=== PATIENT | female | born 1965 | race Caucasian/White ===

== ENCOUNTER 2023-11-09 13:01 | Outpatient (CLI) | payer MEDICAID ==
--- NOTE | 2023-11-12 12:27 | Mammography Report ---
BILATERAL DIGITAL SCREENING MAMMOGRAM 3D/2D WITH EXAGGERATED CC: 11/09/2023 CLINICAL: Routine screening. Family history of breast cancer. Comparison is made to exams dated: 07/28/2022 mammogram, 05/05/2021 mammogram, 03/23/2019 mammogram, and 08/01/2016 [facility]ogram - [facility]. There are scattered areas of fibroglandular density in both breasts (category b / 25%-50% glandular t issue). There is a focal asymmetry in the right breast upper outer quadrant at anterior depth. No other significant masses, calcifications, or other findings are seen in either breast. IMPRESSION: INCOMPLETE: NEEDS ADDITIONAL IMAGING EVALUATION The focal asymmetry in the right breast is indeterminate. Needs additional imaging evaluation. Recom mend right breast diagnostic mammogram and ultrasound. Based on the Tyrer Cuzick model (a risk assessment model) the patients lifetime risk is 7.3% and her 10 year risk is 2.7%. According to the ACR, ACS, and NCCN guidelines, an annual breast MRI exam swapnil g with mammogram is recommended if the patients lifetime risk is 20% or greater. This exam was interpreted at Station ID: [id number]. NOTE: For mammograms, a report in lay terms will be sent to the patient. Approximately 15% of breast malignancies will not be visualized mammographically. In the management of a palpable breast mass, a negative mammogram must not discourage biopsy of a clinically suspicious lesion. Electronically Signed By: Bell Pedro M.D., PH.D eb/:11/11/2023 23:16:21 ACR BI-RADS Category 0: Incomplete 3340F PARENCHYMAL PATTERN: (A) - The breast(s) demonstrate(s) scattered fibroglandular densities. BI-RADS CATEGORY: (0) - 0 Mammo and [place] [id number] Immediate follow-up LATERALITY: (B)
== END 2023-11-09 13:02 | disposition home or self-care (01) ==
LOC: DI.S 13:01
PROVIDERS: ATTEND Physician Assistant Medical
DX: Z12.31 Encounter for screening mammogram for malignant neoplasm of breast (principal); Z80.3 Family history of malignant neoplasm of breast; R92.323 Mammographic fibroglandular density, bilateral breasts; R92.8 Other abnormal and inconclusive findings on diagnostic imaging of breast

== ENCOUNTER 2023-12-02 12:33 | Outpatient (CLI) | payer MEDICAID ==
--- NOTE | 2023-12-03 12:48 | Ultrasound Report ---
LIMITED ULTRASOUND OF RIGHT BREAST: 12/02/2023 CLINICAL: Patient returns today to evaluate a focal asymmetry in the right breast. Comparison is made to exams dated: 12/02/2023 mammogram, 11/09/2023 mammogram - [facility], 07/28/2022 mammogram, 05/05/2021 mammogram, and 03/23/2019 mammogram - [facility]. Color flow ultrasound of the right breast 9 o'clock region was performed. Cardona scale images of the r eal-time examination were reviewed. There is a 0.6 cm x 0.8 cm x 0.5 cm oval cyst with a smooth internal wall in the right breast at 9 o' clock anterior depth 3 cm from the nipple. This oval cyst is hypoechoic with posterior acoustic enha ncement. This correlates with mammography findings. Color flow imaging demonstrates that there is n o vascularity present. IMPRESSION: PROBABLY BENIGN The 0.6 cm x 0.8 cm x 0.5 cm oval cyst in the right breast is consistent with a complicated cyst and is probably benign. A follow-up right ultrasound in 6 months is recommended to demonstrate stability. This exam was interpreted at Station ID: [id number]. Electronically Signed By: Cy ca/dean:12/02/2023 13:25:37 Ultrasound BI-RADS: 3 Probably benign BI-RADS CATEGORY: (3) - 3 Ultrasound [id number] 6 month follow-up LATERALITY: (R)
--- NOTE | 2023-12-03 12:48 | Mammography Report ---
UNILATERAL RIGHT DIGITAL DIAGNOSTIC MAMMOGRAM 3D/2D: 12/02/2023 CLINICAL: Routine screening. Comparison is made to exams dated: [facility] 07/[facility], 05/05/2021 mammogram, and 03/23/2019 mammogram - [facility]. The right breast is heterogeneously dense, which may obscure small masses (category c / 51-75% glandu lar tissue). There is an oval focal asymmetry with a circumscribed margin in the right breast at 9 o'clock anterio r depth. This is seen in additional views. No other significant masses or calcifications are seen in the breast. IMPRESSION: INCOMPLETE: NEEDS ADDITIONAL IMAGING EVALUATION The oval focal asymmetry in the right breast is indeterminate. An ultrasound is recommended. Based on the Tyrer Cuzick model (a risk assessment model) the patients lifetime risk is 10.6% and he r 10 year risk is 4.1%. According to the ACR, ACS, and NCCN guidelines, an annual breast MRI exam nerissa ng with mammogram is recommended if the patients lifetime risk is 20% or greater. This exam was interpreted at Station ID: [id number]. NOTE: For mammograms, a report in lay terms will be sent to the patient. Approximately 15% of breast malignancies will not be visualized mammographically. In the management of a palpable breast mass, a negative mammogram must not discourage biopsy of a clinically suspicious lesion. Electronically Signed By: Cy ca/dean:12/02/2023 13:22:04 ACR BI-RADS Category 0: Incomplete 3340F PARENCHYMAL PATTERN: (D) - The breast(s) demonstrate(s) heterogeneously dense fibroglandular kira mcnally. BI-RADS CATEGORY: (0) - 0 Ultrasound [id number] Immediate follow-up LATERALITY: (R)
== END 2023-12-02 12:34 | disposition home or self-care (01) ==
LOC: DI 12:33
PROVIDERS: ATTEND Physician Assistant Medical
DX: N60.01 Solitary cyst of right breast (principal); R92.333 Mammographic heterogeneous density, bilateral breasts

== ENCOUNTER 2023-12-21 10:25 | Day surgery (SDC) | payer MEDICAID ==
[2023-12-21] MEDS ORDERED: LACTATED RINGERS 1,000 ML IV ONE ×2 (10:34→12:33)
[2023-12-21] MEDS ORDERED: ONDANSETRON 4 MG/2 ML VIAL ONE (10:55)
[2023-12-21] MEDS ORDERED: ONDANSETRON 4 MG/2 ML VIAL IVP ONE (11:03)
[2023-12-21] MEDS ORDERED: PROPOFOL 500 MG/50 ML 500 MG/50 ML VIAL ONE (11:54)
[2023-12-21] MEDS ORDERED: MIDAZOLAM 2 MG/2 ML VIAL ONE (11:54)
--- NOTE | 2023-12-21 11:58 | ANESTHESIA ---
Pre-Anesthesia VS, & Labs - Diagnosis screening - Procedure colonoscopy Vital Signs: Temp Pulse Resp BP Pulse Ox O2 Flow Rate 36.4 C L 83 12 149/85 H 96 12/21/23 10:40 12/21/23 10:40 12/21/23 10:40 12/21/23 10:40 12/21/23 10:40 Height: 5 ft 6 in Weight (kg): 81 kg Body Mass Index: 28.8 BMI Classification: Overweight - NPO >8 hours - Is Patient ?: No Home Medications and Allergies Home Medications: Ambulatory Orders Albuterol Sulfate [Proventil Hfa] 1 puffs IH ONCE 12/20/23 Atorvastatin [Lipitor] 20 mg PO DAILY 12/20/23 FLUoxetine [PROzac] 40 mg PO DAILY 12/20/23 Albuterol Sulfate [Proventil Hfa] 1 puffs IH ONCE 12/20/23 Atorvastatin [Lipitor] 20 mg PO DAILY 12/20/23 FLUoxetine [PROzac] 40 mg PO DAILY 12/20/23 Allergies/Adverse Reactions: Allergies Allergy/AdvReac Type Severity Reaction Status Date / Time Penicillins AdvReac Hives Verified 12/20/23 13:33 Anes History & Medical History - Anesthetic History Anesthesia Complications: reports: No previous complications Family history of Anesthesia Complications: Denies Family history of Malignant Hyperthermia: Denies - Medical History Cardiovascular: reports: High cholesterol Pulmonary: reports: Asthma (exercise induced) Gastrointestinal: reports: Other Urinary: reports: None Musculoskeletal: reports: None Endocrine/Autoimmune: reports: None Skin: reports: None Smoking Status: Never smoker Psychosocial: reports: No issues indicated History of Cancer?: No - Surgical History General: reports: EGD Eyes Ears Nose Throat (EENT): reports: Tonsil/Adenoidectomy Gynecologic: reports: Tubal ligation Exam General: Alert, Oriented x3, Cooperative Dental: WNL Mouth Openin Fingerbreadth Neck Mobility: Normal Mallampati classification: II Thyromental Distance: 4-6 cm Respiratory: Lungs clear Cardiovascular: Regular rate Plan Anesthesia Type: General, Total IV Consent for Procedure(s) Verified and Reviewed: Yes Code Status: Attempt Resuscitation ASA classification: 2-Mild systemic disease Is this case an emergency?: No
[2023-12-21 13:08] VITALS: BP 129/71; O2SAT 98
--- NOTE | 2023-12-21 13:13 | ANESTHESIA POST OP EVALUATION ---
Anesthesia Post Eval - Post Anesthesia Eval Vitals: Last Vital Signs Temp 36.2 C L 12/21/23 12:42 Pulse 79 12/21/23 12:42 Resp 16 12/21/23 12:42 BP 129/71 12/21/23 12:57 Pulse Ox 98 12/21/23 12:42 O2 Flow Rate CV Function Including HR & BP: Stable Pain Control: Satisfactory Nausea & Vomiting: Negative Mental Status: Baseline Respiratory Status: Airway Patent Hydration Status: Satisfactory Anesthesia Complications: None
== END 2023-12-21 10:26 | disposition home or self-care (01) ==
LOC: SDS 10:25
PROVIDERS: ATTEND Surgery
DX: Z12.11 Encounter for screening for malignant neoplasm of colon (principal); K57.30 Diverticulosis of large intestine without perforation or abscess without bleeding; J45.990 Exercise induced bronchospasm
CPT/HCPCS: 45378; J7120

== ENCOUNTER 2024-06-01 12:34 | Outpatient (CLI) | payer MEDICAID ==
--- NOTE | 2024-06-02 09:06 | Ultrasound Report ---
LIMITED ULTRASOUND OF RIGHT BREAST: 06/01/2024 CLINICAL: Patient returns today to evaluate a focal asymmetry in the right breast. Comparison is made to exams dated: 12/02/2023 ultrasound, 12/02/2023 mammogram, 11/09/2023 mammogram - [facility], 07/28/2022 mammogram, 05/05/2021 mammogram, and 03/23/2019 mammogram - [facility]. Color flow and real-time ultrasound of the right breast 9 o'clock region were performed. Cardona scale images of the real-time examination were reviewed. Redemonstration of previously described 0.6 cm x 0.6 cm x 0.5 cm oval cyst with a smooth internal wal l in the right breast at 9 o'clock anterior depth 3 cm from the nipple. This oval cyst is hypoechoic with posterior acoustic enhancement. This abnormality is not significantly changed and correlates w ith mammography findings. Color flow imaging demonstrates that there is no vascularity present. IMPRESSION: PROBABLY BENIGN The 0.6 cm x 0.6 cm x 0.5 cm oval cyst in the right breast is consistent with a complicated cyst and is probably benign. A follow-up bilateral mammogram and a right ultrasound in 6 months is recommended to demonstrate stab ility. Findings and recommendations were conveyed to the patient during today's evaluation. This exam was interpreted at Station ID: [id number]. Electronically Signed By: Sourav Zarate M.D. aty/:06/01/2024 13:06:12 Ultrasound BI-RADS: 3 Probably benign BI-RADS CATEGORY: (3) - 3 Mammo and [place] [id number] 6 month follow-up LATERALITY: (B)
== END 2024-06-01 12:35 | disposition home or self-care (01) ==
LOC: DI 12:34
PROVIDERS: ATTEND Physician Assistant Medical
DX: N60.01 Solitary cyst of right breast (principal)